=== PATIENT | male | born 1995 | race Caucasian/White ===

== ENCOUNTER 2022-12-15 21:39 | Emergency (ER) | payer SELFPAY ==
[~2022-12-15] VITALS: Ht 180.3 cm; Wt 107.0 kg
[2022-12-15 21:50] VITALS: BP 164/90; PULSE 88; RESP 16; TEMP 98.4; O2SAT 99
== END 2022-12-15 23:20 | disposition home or self-care (01) ==
LOC: ER 21:39
DX: F41.9 Anxiety disorder, unspecified (principal)
CPT/HCPCS: 93005; 99283